=== PATIENT | male | born 1960 | race Two or more races ===

== ENCOUNTER 2018-09-21 05:23 | Inpatient (IN) | payer BC ==
[~2018-09-21] VITALS: Ht 177.8 cm; Wt 122.9 kg
--- NOTE | 2018-09-21 05:25 | NUR ---
PT BIB [facility] WITH A C/O LEFT SIDED CP. 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 PT REC'D 162MG ASA IN THE FIELD. PT STATED THAT HE HAS A HX OF 2 STENTS. ONE WAS 5 YRS AGO AND THE OTHER WAS OVER 10 YRS AGO. PT WAS PLACED ON THE MONITOR AND CONTINUOUS PULSE OX. EKG IN PROGRESS AT THE BEDSIDE.
--- NOTE | 2018-09-21 06:00 | NUR ---
PT C/O 5/10 CHEST PAIN. MD NOTIFIED AND NEW ORDERS GIVEN.
[2018-09-21 06:03] LABS: BASOPHILS % (AUTO) 0.5 % (0.0-2.0); EOSINOPHILS % (AUTO) 1.6 % (0.0-6.0); HEMATOCRIT 47 % (39-51); HEMOGLOBIN 16.1 g/dL (13.5-17.5); LYMPHOCYTES # (AUTO) 1.7 /CMM (0.8-4.8); LYMPHOCYTES % (AUTO) 17.6 % (20.0-44.0); MEAN CORPUSCULAR HGB CONC 34 g/dl (31.0-36.0); MEAN CORPUSCULAR VOLUME 93 fL (80-96); MONOCYTES # (AUTO) 0.5 /CMM (0.1-1.30); MONOCYTES % (AUTO) 5.5 % (2.0-12.0); NEUTROPHILS # (AUTO) 7.3 /CMM (1.8-8.9); NEUTROPHILS % (AUTO) 74.8 % (43.0-81.0); PLATELET COUNT (AUTO) 179 /CMM (150-450); RED BLOOD CELL COUNT(AUTO) 5.01 MIL/uL (4.5-6.0); WHITE BLOOD COUNT (AUTO) 9.8 K/uL (4.3-11.0)
[2018-09-21] MEDS ORDERED: MORPHINE SULFATE INJ 4 MG/ML DISP.SYRIN ONE (06:05)
[2018-09-21] MEDS ORDERED: ONDANSETRON HCL/PF 4 MG/2 ML VIAL ONE (06:05)
--- NOTE | 2018-09-21 06:08 | NUR ---
REPEAT EKG DONE AT THE BEDSIDE.
[2018-09-21 06:10] LABS: CALCIUM, SERUM 8.7 mg/dL (8.5-10.1); CREATININE 0.9 mg/dL (0.6-1.3); POTASSIUM 3.8 mmol/L (3.5-5.1)
[2018-09-21] MEDS ORDERED: ASPIRIN 81 MG TAB.CHEW ONE (06:11)
[2018-09-21] MEDS ORDERED: NITROGLYCERIN 0.4 MG/TAB BOTTLE ONE (06:14)
--- NOTE | 2018-09-21 06:14 | NUR ---
CXR IN PROGRESS AT THE BEDSIDE.
--- NOTE | 2018-09-21 06:20 | NUR ---
PT'S AUTO BODY DETAILER IS DR. DAVIS. 'S NUMBER IS: [phone]
[2018-09-21] MEDS ORDERED: MORPHINE SULFATE INJ 2 MG/ML DISP.SYRIN IV ONE (06:30)
[2018-09-21] MEDS ORDERED: ASPIRIN 81 MG TAB.CHEW PO ONE (06:30)
[2018-09-21] MEDS ORDERED: ONDANSETRON HCL/PF 4 MG/2 ML VIAL IVP ONE (06:30)
[2018-09-21] MEDS ORDERED: NITROGLYCERIN 0.4 MG/TAB BOTTLE SL ONE (06:30)
[2018-09-21] MEDS ORDERED: NITROGLYCERIN PACKET 1 GM PACKET TD ONE (07:00)
[2018-09-21] MEDS ORDERED: ATOR40TA PO (07:22)
[2018-09-21] MEDS ORDERED: ASPI-1169 PO (07:22)
[2018-09-21] MEDS ORDERED: METO25TA6 PO (07:22)
[2018-09-21] MEDS ORDERED: HEPARIN SODIUM, PORCINE 5000 UNITS/1 ML VIAL IV ONE (07:30)
[2018-09-21] MEDS ORDERED: HEPARIN INFUSION/D5W 500 ML IV ONE (07:30)
--- NOTE | 2018-09-21 07:32 | NUR ---
REPORT GIVEN TO DEEPTHI DONALDSON FOR MORGAN.
[2018-09-21] MEDS ORDERED: HEPARIN SODIUM, PORCINE 5000 UNITS/1 ML VIAL ONE (07:39)
[2018-09-21] MEDS ORDERED: NITROGLYCERIN PACKET 1 GM PACKET ONE (07:39)
[2018-09-21] MEDS: NICOTINE PATCH (14MG) 14 MG PATCH.TD24 TD SCH (09:00)
[2018-09-21] MEDS ORDERED: ONDANSETRON HCL/PF 4 MG/2 ML VIAL IVP PRN (09:00)
[2018-09-21] MEDS ORDERED: MAG HYDROX/AL HYDROX/SIMETH 30 ML UDC PO PRN (09:00)
[2018-09-21] MEDS ORDERED: HYDROCODONE/APAP 5/325MG 1 EACH TABLET PO PRN (09:00)
[2018-09-21] MEDS ORDERED: ACETAMINOPHEN 325 MG TABLET PO PRN (09:00)
[2018-09-21] MEDS ORDERED: HYDROMORPHONE INJ 2 MG/ML DISP.SYRIN IV PRN (09:00)
[2018-09-21] MEDS ORDERED: ZOLPIDEM TARTRATE 5 MG TABLET PO PRN (09:00)
[2018-09-21] MEDS ORDERED: MAGNESIUM HYDROXIDE 30 ML UDC PO PRN (09:00)
--- NOTE | 2018-09-21 09:04 | NUR ---
REPORT GIVEN TO RHONDA LACEY FOR MORGAN
[2018-09-21 09:15] VITALS: BP 117/69
--- NOTE | 2018-09-21 09:21 | NUR ---
BUSINESS CONTINUITY GLOBAL DIRECTOR OPENING NOTES RECEIVED PATIENT IN STABLE CONDITION. IN NO APPARENT DISTRESS. BEDSIDE RAILS ARE UPX2. BED IS LOCKED AND LOWERED. CALL LIGHT IS WITHIN REACH. IV LINE IS INTACT AND PATENT. WILL CONTINUE TO MONITOR PATIENT.
--- NOTE | 2018-09-21 09:24 | NUR ---
wheeled patient via acls protocol going to room 313 in no apparent distress noted. Heparin drip infusing well during transfer. Kerwin at bedside to assume care.
[2018-09-21] MEDS ORDERED: IV NS 0.9% 1,000 ML IV PRN (09:30)
[2018-09-21] MEDS: ASPIRIN 81 MG TAB.CHEW PO SCH (10:17)
[2018-09-21] MEDS: METOPROLOL TARTRATE 25 MG TABLET PO SCH ×2 (10:17→16:27)
[2018-09-21] MEDS: ATORVASTATIN 40 MG TABLET PO SCH (10:17)
[2018-09-21] MEDS ORDERED: HEPARIN INFUSION/D5W 500 ML IV PRN (11:30)
[2018-09-21] MEDS: ISOSORBIDE MONONITRATE (30MG) 30 MG TAB.SR.24H PO SCH (12:41)
[2018-09-21 16:00] VITALS: BP 115/56
--- NOTE | 2018-09-21 18:33 | NUR ---
[facility] GENERAL COUNSEL CLOSING NOTES PATIENT IS IN STABLE CONDITION. IN NO APPARENT DISTRESS. BEDSIDE RAILS ARE UPX2. BED IS LOCKED AND LOWERED. CALL LIGHT IS WITHIN REACH. IV LINE IS INTACT AND PATENT. ALL NEEDS WERE MET. WILL ENDORSE CARE TO CHAINSTITCH BINDER NURSE FOR MORGAN.
--- NOTE | 2018-09-21 19:30 | NUR ---
RN NOTES RECEIVED PT. AWAKE ON BED, ON HEPARIN DRIP 1896UNITS/HR, SB ON TELE MONITOR HR-58, DENIES PAIN, NO SOB, CALL LIGHT WITHIN REACH,[id number], CONTINUE TO MONITOR
[2018-09-21 20:00] VITALS: BP 149/58
[2018-09-22] VITALS: BP 143/69
[2018-09-22 04:00] VITALS: BP 120/57
--- NOTE | 2018-09-22 05:45 | NUR ---
RN NOTES CALLED [facility] AND NOBODY'S ANSWERING , WILL TRY AGAIN LATER
--- NOTE | 2018-09-22 06:00 | NUR ---
RN NOTES AMBULANCE PICKED-UP THE PT. PT DENIES PAIN, NO SOB, V/S STABLE
[2018-09-22 06:22] LABS: ALBUMIN 3.3 g/dL (3.4-5.0); BILIRUBIN,TOTAL 1.7 mg/dL (0.2-1.0); CALCIUM, SERUM 8.6 mg/dL (8.5-10.1); CREATININE 0.8 mg/dL (0.6-1.3); MAGNESIUM 1.8 mg/dL (1.8-2.4); PHOSPHORUS 3.8 mg/dL (2.5-4.9); POTASSIUM 3.9 mmol/L (3.5-5.1); TOTAL PROTEIN, SERUM 6.8 g/dL (6.4-8.2)
--- NOTE | 2018-09-22 06:30 | NUR ---
RN NOTES CALLED [facility] AND SPOKE TO THEIR DISTANCE LEARNING UNIT LEADER AND SHE TOLD ME TO CALL BACK AROUND [id number]
[2018-09-22 06:35] LABS: BASOPHILS % (AUTO) 0.3 % (0.0-2.0); EOSINOPHILS % (AUTO) 1.3 % (0.0-6.0); HEMATOCRIT 45 % (39-51); HEMOGLOBIN 15.3 g/dL (13.5-17.5); LYMPHOCYTES # (AUTO) 2.7 /CMM (0.8-4.8); LYMPHOCYTES % (AUTO) 24.8 % (20.0-44.0); MEAN CORPUSCULAR HGB CONC 34 g/dl (31.0-36.0); MEAN CORPUSCULAR VOLUME 93 fL (80-96); MONOCYTES # (AUTO) 0.8 /CMM (0.1-1.30); MONOCYTES % (AUTO) 7.2 % (2.0-12.0); NEUTROPHILS # (AUTO) 7.1 /CMM (1.8-8.9); NEUTROPHILS % (AUTO) 66.4 % (43.0-81.0); PLATELET COUNT (AUTO) 148 /CMM (150-450); RED BLOOD CELL COUNT(AUTO) 4.81 MIL/uL (4.5-6.0); WHITE BLOOD COUNT (AUTO) 10.7 K/uL (4.3-11.0)
--- NOTE | 2018-09-22 06:45 | NUR ---
RN NOTES CALLED CARDIAC CATH AND TOLD ME TO CALL BACK AFTER 20MINS, NURSE IS STILL NOT AROUND
--- NOTE | 2018-09-22 07:20 | NUR ---
RN NOTES CALLED SAME DAY SURGERY IN [facility] AND SPOKE TO MITCH DIAL AND FAX APT. RECENT LAB WORKS
--- NOTE | 2018-09-22 07:30 | NUR ---
MS/RN Patient received Report received from restaurant shift leader. Patient off unit at this time at [facility] for cardiac cath. All personal belongings with patient.
[2018-09-22] MEDS: ISOSORBIDE MONONITRATE (30MG) 30 MG TAB.SR.24H PO SCH (09:00)
[2018-09-22] MEDS: NICOTINE PATCH (14MG) 14 MG PATCH.TD24 TD SCH (09:00)
[2018-09-22] MEDS: METOPROLOL TARTRATE 25 MG TABLET PO SCH (09:00)
[2018-09-22] MEDS: ASPIRIN 81 MG TAB.CHEW PO SCH (09:00)
[2018-09-22] MEDS: ATORVASTATIN 40 MG TABLET PO SCH (09:00)
--- NOTE | 2018-09-22 09:22 | NUR ---
WOUND CARE CONSULT: PT OFF UNIT AT THIS TIME FOR CARDIAC CATH. WILL SEE PT CONDITION PERMITS AT LATER TIME.
[2018-09-22] MEDS ORDERED: Z GUARD REMEDY 2 OZ OINT TP SCH (09:30)
[2018-09-22] MEDS ORDERED: Z GUARD REMEDY 2 OZ OINT TP PRN (09:30)
--- NOTE | 2018-09-22 13:26 | NUR ---
MS/RN [facility] Patient still in [facility] at this time, per cardiac cath nurse, patient will be returning.
--- NOTE | 2018-09-22 15:08 | NUR ---
MS/u.s. representative Patient not returning to [facility] following cardiac catH, will be admitted at [facility].
== END 2018-09-22 06:00 | disposition short-term general hospital (02) | DRG 303 ==
LOC: ER 05:23 → TELE 08:55
PROVIDERS: ADMIT Nurse Practitioner Acute Care; ATTEND Nurse Practitioner Acute Care
DX: I25.110 Atherosclerotic heart disease of native coronary artery with unstable angina pectoris (principal); E87.1 Hypo-osmolality and hyponatremia; I10 Essential (primary) hypertension; E66.9 Obesity, unspecified; E78.5 Hyperlipidemia, unspecified; Z95.5 Presence of coronary angioplasty implant and graft; F17.210 Nicotine dependence, cigarettes, uncomplicated; Z68.38 Body mass index [BMI] 38.0-38.9, adult; R73.9 Hyperglycemia, unspecified
CPT/HCPCS: 36415; 71045-TC; 80048-TC; 80053-TC; 80061-TC; 83735-TC; 84100-TC; 84484-TC; 85025-TC; 85730-TC; 87081-TC; 93307-TC; G0378; J1644; J2270; J2405